=== PATIENT | female | born 1955 | race Caucasian/White ===

== ENCOUNTER 2023-01-26 06:41 | Day surgery (SDC) | payer MEDICARE, OTHER ==
[~2023-01-26] VITALS: Ht 167.6 cm; Wt 72.5 kg
[~2023-01-26 06:41] MED LIST: ASPIRIN 32325 MG/TAB PO; CALCIUM1 CAP PO; EFFEXOR 75M75 MG/TAB PO; LIPITOR20 MG PO; PRILOSEC 20MG20 MG PO; PRINIVIL20 MG PO; VITAMIN C500 MG PO
[2023-01-26 07:53] VITALS: BP 154/85; PULSE 67; TEMP 98.2
[2023-01-26] MEDS ORDERED: LIPITOR 40MG TA40 MG PO (08:04)
[2023-01-26] MEDS ORDERED: COZAAR100 MG PO (08:05)
[2023-01-26] MEDS ORDERED: EFFEXOR-XR150 MG PO (08:05)
[2023-01-26] MEDS ORDERED: B-12 500 MCG PO (08:07)
[2023-01-26] MEDS ORDERED: VITAMIN D362.5 MC1 PO (08:08)
[2023-01-26] MEDS ORDERED: CALCIUM 600MG+D1 TAB PO (08:09)
[2023-01-26] MEDS ORDERED: VITAMINC1000TA (08:09)
[2023-01-26] MEDS ORDERED: NATURE'S BLE1000 MCG (08:10)
[2023-01-26] MEDS ORDERED: COLLAGEN PLUS PO (08:11)
[2023-01-26] MEDS ORDERED: MASON NATURAL1200 MG PO (08:13)
[2023-01-26] MEDS ORDERED: OSTEO-BI-FLEX 21 TAB PO (08:13)
[2023-01-26] MEDS ORDERED: NORCO 325 MG-51 TAB PO (10:48)
[2023-01-26] MEDS ORDERED: CEPHALEXIN500 M1 PO (10:48)
[2023-01-26 10:52] VITALS: BP 124/88; PULSE 79; TEMP 97.8
--- NOTE | 2023-01-26 10:52 | NUR ---
[id number] RETURNS TO ROOM 2 VIA CART. PATIENT IS ALERT AND ORIENTED, NO C/O PAIN. PATIENT FRIEND IS IN ROOM. RESPIRATIONS EVEN AND UNLABORED. VITAL SIGNS OBTAINED. DRESSING TO RIGHT HAND/WRIST IS CDI. CAP REFILL TO RIGHT HAND FINGERTIPS BRISK. PATIENT REQUESTED A PEPSI AND A MUFFIN. NO DIFFICULTIES SWALLOWING. 1120 THIS NURSE DISCONTINUED IV FROM LEFT HAND WITH NO DIFFICULTIES. 1145 THIS NURSE REVIEWED DISCHARGE INSTRUCTIONS WITH PATIENT AND PATIENT FRIEND. BOTH VERBALIZED UNDERSTANDING. 1146 PATIENT DRESSES SELF. 1150 PATIENT DISCHARGES FROM UNIT VIA WHEELCHAIR IN STABLE CONDITION.
[2023-01-26 11:10] VITALS: BP 133/77; PULSE 90
[2023-01-26 11:25] VITALS: BP 148/88; PULSE 73
== END 2023-01-26 11:50 | disposition home or self-care (01) ==
LOC: SDCO 06:41
DX: M65.311 Trigger thumb, right thumb (principal); F17.210 Nicotine dependence, cigarettes, uncomplicated; I10 Essential (primary) hypertension
CPT/HCPCS: J0690; J2704; J3010; J7120